=== PATIENT | female | born 1970 | race Caucasian/White ===

== ENCOUNTER → 2017-11-25 | Outpatient (REF) | payer OTHER ==
[2017-11-25 12:19] LABS: BASO % 0.5 % (0.0-1.0); EOS # 0.1 10^3/uL (0.0-0.50); EOS % 1.2 % (0.0-3.0); HEMATOCRIT 41.3 % (36.0-47.0); IMMATURE GRANULOCYTE % 0.3 % (0-3.0); LYMPH # 1.4 10^3/uL (1.5-4.5); LYMPH % 23.4 % (24.0-44.0); MEAN CORPUSCULAR HEMOGLOBIN 30.7 pg (27.0-33.0); MEAN CORPUSCULAR HGB CONC 33.9 g/dl (32.0-36.5); MEAN CORPUSCULAR VOLUME 90.6 fl (80.0-96.0); MONO # 0.4 10^3/uL (0.0-0.8); MONO % 7.1 % (0.0-5.0); NEUTROPHILS # 4.1 10^3/uL (1.8-7.7); NEUTROPHILS % 67.5 % (36.0-66.0); PLATELET COUNT, AUTOMATED 286 10^3/uL (150-450); RED BLOOD COUNT 4.56 10^6/uL (4.00-5.40); RED CELL DISTRIBUTION WIDTH 12.4 % (11.5-14.5); WHITE BLOOD COUNT 6.1 10^3/uL (4.0-10.0)
[2017-11-25 12:48] LABS: FOLATE 17.2 NG/ML; TOTAL 25(OH) VITAMIN D 32.1 NG/ML (30.0-100.0); VITAMIN B12 LEVEL 265 PG/ML
[2017-11-25 12:53] LABS: ALBUMIN 3.6 GM/DL (3.2-5.2); ALBUMIN/GLOBULIN RATIO 0.95 (1.00-1.93); ALKALINE PHOSPHATASE 66 U/L (45-117); ALT/SGPT 17 U/L (12-78); ANION GAP 8 MEQ/L (8-16); AST/SGOT 10 U/L (7-37); BILIRUBIN,TOTAL 0.5 MG/DL (0.2-1.0); BLOOD UREA NITROGEN 10 MG/DL (7-18); CALCIUM LEVEL 8.9 MG/DL (8.5-10.1); CARBON DIOXIDE LEVEL 27 MEQ/L (21-32); CHLORIDE LEVEL 105 MEQ/L (98-107); CHOLESTEROL LEVEL 203 MG/DL (<200); CHOLESTEROL RISK RATIO 2.388 (<5); CREATININE FOR GFR 0.87 MG/DL (0.55-1.30); GLOMERULAR FILTRATION RATE > 60.0 (>58); GLUCOSE, FASTING 96 MG/DL (70-100); HDL CHOLESTEROL 85 MG/DL (>40); MAGNESIUM LEVEL 2.1 MG/DL (1.8-2.4); NON-HDL-C 118 MG/DL; POTASSIUM SERUM 4.4 MEQ/L (3.5-5.1); SODIUM LEVEL 140 MEQ/L (136-145); TOTAL PROTEIN 7.4 GM/DL (6.4-8.2); TRIGLYCERIDES LEVEL 90 MG/DL (<150)
[2017-11-25 13:09] LABS: ERYTHROCYTE SEDIMENTATION RATE 7 mm/hr (0-20)
== END ==
LOC: M LABDRAW1 11:58
DX: R53.83 Other fatigue (principal); M79.1 Myalgia

== ENCOUNTER → 2018-02-05 | Outpatient (REF) | payer OTHER ==
[2018-02-07 14:50] LABS: HPV HYBRID CAPTURE II Negative (Negative)
== END ==
LOC: M SFHCWAGY 15:23
DX: Z12.4 Encounter for screening for malignant neoplasm of cervix (principal)

== ENCOUNTER → 2018-09-10 | Outpatient (REF) | payer OTHER ==
[2018-09-11 10:07] LABS: RUBELLA IgG QUALITATIVE IMMUNE (IMMUNE)
[2018-09-12 13:50] LABS: MUMPS VIRUS IgG ANTIBODY 56.6 AU/mL (Immune >10.9); RUBEOLA IgG ANTIBODY >300.0 AU/mL (Immune >29.9)
== END ==
LOC: M LABDRAW1 17:04
PROVIDERS: ATTEND Physician Assistant
DX: Z01.84 Encounter for antibody response examination (principal)

== ENCOUNTER → 2018-12-24 | Outpatient (REF) | payer OTHER | LOC: M LAB REF 13:26 | PROVIDERS: ATTEND Physician Assistant | DX: J02.9 Acute pharyngitis, unspecified (principal) ==

== ENCOUNTER 2019-06-08 14:12 | Emergency (ER) | payer OTHER ==
[~2019-06-08] VITALS: Ht 170.2 cm; Wt 86.3 kg
[2019-06-08] MEDS ORDERED: DERMABOND TOPICAL SKIN ADHESIVE TOP ONE (16:00)
[2019-06-08] MEDS ORDERED: ADACEL/BOOSTRIX VACCINE (DIPHTH/PERTUSS/ACELL/TETANUS)0.5ML SYR (90715) IM ONE (16:00)
[2019-06-08 16:10] VITALS: BP 130/76
== END 2019-06-08 16:11 | disposition home or self-care (01) ==
LOC: M ED 14:12
DX: S91.311A Laceration without foreign body, right foot, initial encounter (principal); W22.03XA Walked into furniture, initial encounter; W26.8XXA Contact with other sharp object(s), not elsewhere classified, initial encounter; Y92.009 Unspecified place in unspecified non-institutional (private) residence as the place of occurrence of the external cause; Y93.9 Activity, unspecified; Y99.9 Unspecified external cause status

== ENCOUNTER → 2020-11-09 | Outpatient (REF) | payer OTHER ==
[2020-11-10 17:15] LABS: Lyme Disease IgG/IgM Antibodie <0.91 ISR (0.00-0.90); Lyme Disease IgM Ab Quantitati <0.80 index (0.00-0.79)
== END ==
LOC: M PLALAB 12:49
PROVIDERS: ATTEND Nurse Practitioner Family
DX: M12.9 Arthropathy, unspecified (principal)

== ENCOUNTER → 2021-01-09 | Outpatient (CLI) | payer OTHER ==
--- NOTE | 2021-01-09 11:52 | REP ---
INDICATION: LATERAL EPICONDYLITIS LT. COMPARISON: None. TECHNIQUE: Four views FINDINGS: There is no acute fracture, dislocation, subluxation, or joint effusion. IMPRESSION: Negative <Electronically signed by Vinod Christopher > 01/09/21 [id number]
== END ==
LOC: M SOG 10:37
PROVIDERS: ATTEND Orthopaedic Surgery Sports Medicine
DX: M77.12 Lateral epicondylitis, left elbow (principal)

== ENCOUNTER → 2021-02-06 | Outpatient (CLI) | payer OTHER ==
--- NOTE | 2021-02-06 10:39 | REP ---
INDICATION: LOCALIZED SWELLING PT HAS LABS 1ST COMPARISON: None. TECHNIQUE: AP and lateral left humerus. FINDINGS: The osseous structures and joint spaces are intact and normal. There is no evidence for acute fracture or dislocation. Surrounding soft tissues are unremarkable. No subcutaneous emphysema or radiodense foreign body. IMPRESSION: . No acute fracture or dislocation. <Electronically signed by Boubacar Robison > 02/06/21 0746
[2021-02-06 11:27] LABS: ALBUMIN 3.8 GM/DL (3.2-5.2); ALT/SGPT 24 U/L (12-78); BILIRUBIN,TOTAL 0.5 MG/DL (0.2-1.0); BLOOD UREA NITROGEN 11 MG/DL (7-18); CALCIUM LEVEL 9.1 MG/DL (8.5-10.1); CARBON DIOXIDE LEVEL 29 MEQ/L (21-32); CHLORIDE LEVEL 107 MEQ/L (98-107); CHOLESTEROL LEVEL 212 MG/DL (<200); CHOLESTEROL RISK RATIO 2.058 (<5); CREATININE FOR GFR 0.79 MG/DL (0.55-1.30); GLOMERULAR FILTRATION RATE > 60.0 (>51); GLUCOSE, FASTING 74 MG/DL (70-100); HDL CHOLESTEROL 103 MG/DL (>40); LDL CHOLESTEROL 97 MG/DL (<100); NON-HDL-C 109 MG/DL; POTASSIUM SERUM 3.9 MEQ/L (3.5-5.1); SODIUM LEVEL 142 MEQ/L (136-145); TOTAL PROTEIN 7.3 GM/DL (6.4-8.2); TRIGLYCERIDES LEVEL 60 MG/DL (<150)
== END ==
LOC: M LAB 10:11
PROVIDERS: ATTEND Nurse Practitioner Family
DX: R22.32 Localized swelling, mass and lump, left upper limb (principal); Z00.00 Encounter for general adult medical examination without abnormal findings

== ENCOUNTER → 2021-02-23 | Outpatient (CLI) | payer OTHER | LOC: M PLARAD 10:33 | PROVIDERS: ATTEND Nurse Practitioner Family | DX: Z53.20 Procedure and treatment not carried out because of patient's decision for unspecified reasons (principal) ==

== ENCOUNTER → 2021-03-29 | Outpatient (CLI) | payer OTHER ==
[2021-03-29 11:26] LABS: C REACTIVE PROTEIN QUANTITATIV 0.48 MG/DL (0.00-0.30); MAGNESIUM LEVEL 1.9 MG/DL (1.8-2.4); PHOSPHORUS LEVEL 3.8 MG/DL (2.5-4.9); THYROID STIMULATING HORMONE 0.884 uIU/ML (0.358-3.740)
[2021-03-29 11:29] LABS: TOTAL 25(OH) VITAMIN D 42.7 NG/ML (30.0-100.0)
[2021-03-30 13:11] LABS: SSA SJOGRENS A <0.2 AI (0.0-0.9); SSB SJOGRENS B <0.2 AI (0.0-0.9)
== END ==
LOC: M LAB 10:13
PROVIDERS: ATTEND Internal Medicine
DX: H04.129 Dry eye syndrome of unspecified lacrimal gland (principal); M79.10 Myalgia, unspecified site; R79.82 Elevated C-reactive protein (CRP)

== ENCOUNTER → 2021-05-31 | Outpatient (REF) | payer OTHER | LOC: M SFHCWAGY 13:25 | PROVIDERS: ATTEND Nurse Practitioner Women's Health | DX: Z12.4 Encounter for screening for malignant neoplasm of cervix (principal) | CPT/HCPCS: 87624; G0123 ==

== ENCOUNTER → 2022-12-06 | Outpatient (CLI) | payer OTHER ==
[2022-12-06 09:17] LABS: ALBUMIN 3.8 G/DL (3.2-5.2); ALKALINE PHOSPHATASE 91 U/L (46-116); ALT/SGPT 15 U/L (7.0-40); AST/SGOT 12 U/L (<34); BILIRUBIN,TOTAL 0.7 MG/DL (0.3-1.2); BLOOD UREA NITROGEN 12 MG/DL (9-23); CARBON DIOXIDE LEVEL 30 MMOL/L (20-31); CHLORIDE LEVEL 104 MMOL/L (98-107); CHOLESTEROL LEVEL 185 MG/DL (<200); CHOLESTEROL RISK RATIO 2.32 (<5); CREATININE FOR GFR 0.71 MG/DL (0.55-1.30); GLOMERULAR FILTRATION RATE > 60.0 (>51); GLUCOSE, FASTING 85 MG/DL (60-100); HDL CHOLESTEROL 79.7 MG/DL (>40); LDL CHOLESTEROL 94.1 MG/DL (<100); NON-HDL-C 105.3 MG/DL; POTASSIUM SERUM 4.4 MMOL/L (3.5-5.1); SODIUM LEVEL 140 MMOL/L (136-145); TOTAL PROTEIN 6.8 G/DL (5.7-8.2); TRIGLYCERIDES LEVEL 56 MG/DL (<150)
== END ==
LOC: M LAB 08:09
PROVIDERS: ATTEND Nurse Practitioner Family
DX: Z00.00 Encounter for general adult medical examination without abnormal findings (principal)

== ENCOUNTER → 2023-09-17 | Outpatient (CLI) | payer OTHER | LOC: M SOG 07:54 | PROVIDERS: ATTEND Physician Assistant | DX: M79.644 Pain in right finger(s) (principal) ==

== ENCOUNTER → 2023-11-20 | Outpatient (REF) | payer OTHER ==
[2023-11-22 12:04] LABS: HPV APTIMA Not Detected (Not Detected)
== END ==
LOC: M SFHCWAGY 13:33
PROVIDERS: ATTEND Nurse Practitioner Family
DX: Z12.4 Encounter for screening for malignant neoplasm of cervix (principal)
CPT/HCPCS: 87624; G0123

== ENCOUNTER 2023-12-24 08:35 | Day surgery (SDC) | payer OTHER ==
[~2023-12-24] VITALS: Ht 170.2 cm; Wt 82.8 kg
[2023-12-24] MEDS: SODIUM BICARBONATE 8.4% INJ 50MEQ 50ML VIAL XX ONE (09:45)
[2023-12-24] MEDS: LIDOCAINE W/EPINEPHRINE 1% 20ML VIAL XX ONE (09:45)
[2023-12-24] MEDS: BACITRACIN OINTMENT 30GM TUBE As Ordered ONE (10:42)
[2023-12-24 10:55] VITALS: BP 135/60; TEMP 97.4; O2SAT 100
== END 2023-12-24 11:15 | disposition home or self-care (01) ==
LOC: M SDC 08:35
PROVIDERS: ATTEND Orthopaedic Surgery Hand Surgery
DX: M65.311 Trigger thumb, right thumb (principal); F17.290 Nicotine dependence, other tobacco product, uncomplicated

== ENCOUNTER → 2024-02-21 | Outpatient (CLI) | payer BC, OTHER ==
[2024-02-21 12:29] LABS: BASO % 0.5 % (0.0-1.0); EOS # 0.1 10^3/uL (0.0-0.5); EOS % 1.1 % (0.0-3.0); HEMATOCRIT 44.5 % (36.0-47.0); HEMOGLOBIN 14.7 g/dl (12.0-15.5); LYMPH # 1.5 10^3/uL (1.5-5.0); LYMPH % 26.6 % (24.0-44.0); MEAN CORPUSCULAR HEMOGLOBIN 30.4 pg (27.0-33.0); MEAN CORPUSCULAR VOLUME 92.1 fl (80.0-96.0); MONO # 0.4 10^3/uL (0.0-0.8); MONO % 6.6 % (2.0-8.0); NEUTROPHILS # 3.6 10^3/uL (1.5-8.5); PLATELET COUNT, AUTOMATED 269 10^3/uL (150-450); RED BLOOD COUNT 4.83 10^6/uL (4.00-5.40); WHITE BLOOD COUNT 5.5 10^3/uL (4.0-10.0)
[2024-02-21 12:33] LABS: ERYTHROCYTE SEDIMENTATION RATE 14 mm/hr (0-30)
[2024-02-21 12:50] LABS: C REACTIVE PROTEIN QUANTITATIV < 0.40 MG/DL (<1.0)
[2024-02-21 12:51] LABS: ALT/SGPT 22 U/L (7.0-40); AST/SGOT 12 U/L (<34); CREATININE FOR GFR 0.75 MG/DL (0.55-1.30); GLOMERULAR FILTRATION RATE > 60.0 (>51); RHEUMATOID FACTOR QUANT 8.4 IU/ML (<14)
[2024-02-24 12:08] LABS: ANA SCREEN, IFA NEGATIVE (NEGATIVE)
[2024-02-24 12:17] LABS: SSA SJOGRENS A <1.0 NEG AI (<1.0 NEG); SSB SJOGRENS B <1.0 NEG AI (<1.0 NEG)
[2024-02-25 00:17] LABS: CYCLIC CITRULLINATED PEPTIDE < 16 UNITS (<20)
== END ==
LOC: M LAB 11:38
PROVIDERS: ATTEND Physician Assistant
DX: M25.50 Pain in unspecified joint (principal)

== ENCOUNTER 2024-10-22 08:01 | Day surgery (SDC) | payer BC, OTHER ==
[~2024-10-22] VITALS: Ht 172.7 cm; Wt 77.1 kg
[2024-10-22] MEDS ORDERED: LIDOCAINE 2% 100MG/5ML SDV (FOR ANES.) As Ordered ONE (09:00)
[2024-10-22] MEDS ORDERED: propofoL 200 MG/20 ML VIAL As Ordered ONE (09:00)
[2024-10-22] MEDS ORDERED: fentaNYL 100 MCG/2 ML INJECTION As Ordered ONE (09:01)
[2024-10-22 09:14] VITALS: TEMP 97.6
[2024-10-22 09:30] VITALS: BP 114/60; O2SAT 99
== END 2024-10-22 09:36 | disposition home or self-care (01) ==
LOC: M OPP 08:01
PROVIDERS: ATTEND Surgery
DX: K29.50 Unspecified chronic gastritis without bleeding (principal); R10.84 Generalized abdominal pain; F17.290 Nicotine dependence, other tobacco product, uncomplicated
CPT/HCPCS: 43239; 88305; J3010

== ENCOUNTER → 2025-02-01 | Outpatient (CLI) | payer BC, OTHER ==
[2025-02-01 10:11] LABS: BASO # 0.0 10^3/uL (0.0-0.2); BASO % 0.5 % (0.0-1.0); EOS # 0.1 10^3/uL (0.0-0.5); EOS % 1.1 % (0.0-3.0); LYMPH # 1.7 10^3/uL (1.5-5.0); LYMPH % 30.2 % (24.0-44.0); MONO # 0.4 10^3/uL (0.0-0.8); MONO % 7.3 % (2.0-8.0); NEUTROPHILS # 3.3 10^3/uL (1.5-8.5); NEUTROPHILS % 60.7 % (36.0-66.0); PLATELET COUNT, AUTOMATED 256 10^3/uL (150-450)
[2025-02-01 10:50] LABS: ALT/SGPT 19.0 U/L (7.0-40); AST/SGOT 17.0 U/L (<34); CALCIUM LEVEL 9.9 MG/DL (8.5-10.1); CARBON DIOXIDE LEVEL 31.0 MMOL/L (20-31); CHLORIDE LEVEL 104.0 MMOL/L (98-107); CREATININE FOR GFR 0.8 MG/DL (0.55-1.30); GLOMERULAR FILTRATION RATE 87.0 (>51); POTASSIUM SERUM 4.3 MMOL/L (3.5-5.1); SODIUM LEVEL 143.0 MMOL/L (136-145)
== END ==
LOC: M LAB 09:47
PROVIDERS: ATTEND Nurse Practitioner Family
DX: R10.13 Epigastric pain (principal)

== ENCOUNTER → 2025-02-15 | Outpatient (CLI) | payer OTHER ==
[~2025-02-15] MED LIST: ISOVUE-370 76% 100 ML VIAL As Ordered ONE
== END ==
LOC: M RAD 16:11
PROVIDERS: ATTEND Nurse Practitioner Family
DX: R10.84 Generalized abdominal pain (principal); N20.0 Calculus of kidney; K56.41 Fecal impaction
CPT/HCPCS: 74177; Q9967

== ENCOUNTER → 2025-04-25 | Outpatient (CLI) | payer OTHER | LOC: M RAD 08:37 | PROVIDERS: ATTEND Internal Medicine | DX: R14.0 Abdominal distension (gaseous) (principal); R63.4 Abnormal weight loss ==